=== PATIENT | female | born 1960 | race Caucasian/White ===

== ENCOUNTER 2017-10-07 15:27 | Outpatient (CLI) | payer OTHER ==
[~2017-10-07] VITALS: Ht 157.5 cm; Wt 115.9 kg
[~2017-10-07 15:27] MED LIST: OMEP20CA16 PO
[2017-10-07 15:39] VITALS: Ht 157.5 cm; Wt 115.9 kg
[2017-10-07] MEDS ORDERED: PANT40TA3 PO (15:39)
[2017-10-07] MEDS ORDERED: ONDA-43 PO (15:39)
[2017-10-07 15:40] VITALS: BP 130/68; PULSE 92; RESP 18
--- NOTE | 2017-10-07 16:03 | PN ---
Date/Time of Note Date/Time of Note DATE: 10/07/17 TIME: 15:56 Outpatient Progress Note Chief Complaint UTI/cellulitis//anxiety/endometrial cancer/obesity HPI UTI/no frequency urgency, no fever chill, no blood in the urine, on antibiotic, Cellulitis/patient has cellulitis of the chest wall, patient had redness, and skin peeling, improving, on antibiotic, Anxiety/patient anxious and nervous, patient was given Ativan in the hospital, Endometrial cancer/patient had endometrial cancer, patient had a hysterectomy, no vaginal bleeding, Obesity/patient morbidly obese, no history of hypothyroidism, Review of Systems Const: No Fever, no chills, no Wt. loss, no Fatigue, normal appetite, no diaphoresis. Eyes: No pain, no discharge, no redness, no visual change, no foreign body. ENT: No pain, no bleeding, no congestion, no sore throat, no dysphagia, no discharge or rhinitis. Lymph: No adenopathy, no tender nodes, no lymphedema. Resp: No SOB, no cough, no sputum, no wheezing, no chest pain. CV: No chest pain, no palpitaions, no BLACKMAN, no PND, no edema. GI: Normal appetite, no pain, no nausea, no vomiting, no diarrhea, no blood, no constipation. : No frequency, no urgency, no dysuria, no hematuria, no flank pain, no discharge, no bleeding. Musc: no back pain, no neck pain, no knee pain, no restricted ROM. Skin: No rash, no skin lesions, no erythema, no laceration, no bruising, no pruritus. Neuro: No GIRARD, no dizziness, no syncope, no seizure, no focal-weakness. Endo: No polyuria, no polydypsia, no dry-skin, no temp-intolerance. Psych: No hallucinations, no depression, no anxiety, no suicidal ideation. Ext: No edema, no pain, no ulcer, no weakness. Physical Exam Vital Signs Date Time Temp Pulse Resp B/P Pulse Ox O2 Delivery O2 Flow Rate FiO2 10/07/17 15:40 97.7 92 18 130/68 94 Room Air General Appearance: A 57 year-old male who appears well-developed, well- nourished, in no acute distress. Patient morbidly obese, HEENT: Head normocephalic, atraumatic. Pupils equal, round, reactive to light and accommodate. Sclerae are no jaundice. Nasal turbinates pink without erythema or nasal discharge. Mucous membranes pink and moist without lesions. Oropharynx clear without any exudate or discharge. NECK: Supple. Trachea midline, No thyromegaly, No cervical lymphadenopathy, No mass, No carotid bruits, No JVD, Carotid pulses 2+ bilaterally. PULMONARY: Clear to auscultaion bilaterally, No retractions, Chest expansion symmetric bilaterally, no rales, no ronchi, no dulness on percussion. CARDIAC: Normal SI and S2, Regular rate and rythm, no murmur, gallop, or rub. GASTROINTESTINAL: Abdomen is soft, non-tender, Non Rigid, No distention, Positive bowel sounds x4 quadrants, Liver normal. SKIN: Warm, dry, no rash, no bruise, no echmosis. No redness of the skin on the chest, EXTREMITIES: Bilateral lower extremities no edema, no phlabitus, pulse palpable , no contracture. MUSCULOSKELETAL: Spine Normal, Non-tender, Normal range of motion, No swelling, no deformity, no clubbing, or cyanosis, the patient has no edema to bilateral lower extremities, dorsalis pedis pulses palpable bilaterally. NEUROLOGIC: The patient is awake, alert, oriented, responding to yes/no questions appropriately, moving all extremities, cranial nerve intact, normal strenght, normal power, normal coordination, normal gait. Allergies Coded Allergies: Codeine (Verified Allergy, Intermediate, SOB, 02/23/13) PMH cellulitis/anxiety/UTI/endometrial cancer Social Hx No smoking no drinking, Family Hx Noncontributory Assessment/Plan Impression UTI/cellulitis/anxiety/endometrial cancer/obesity Plan Continue all medication, patient still on antibiotic, patient skin much improved , and patient has no urinary symptoms, Patient education done about her disease, Patient encouraged to increase activity and lose weight, And avoid smoke inhalation, Patient to follow with the primary care physician, Medications Home Meds Reported Medications Pantoprazole* (Protonix*) 40 Mg Tablet., 40 MG PO DAILY, TAB 10/07/17 Ondansetron Hcl* (Zofran*) 4 Mg Tab, 8 MG PO Q6H Y for NAUSEA AND OR VOMITING, TAB 10/07/17 Discontinued Reported Medications Omeprazole* (Omeprazole*) 20 Mg Capsule., 40 MG PO DAILY 02/23/13 BRIAN AYALA MD Oct 07, 2017 16:03
== END 2017-10-07 17:00 | disposition home or self-care (01) ==
LOC: DCC 15:27
PROVIDERS: ATTEND Internal Medicine
DX: N39.0 Urinary tract infection, site not specified (principal); L03.313 Cellulitis of chest wall; F41.9 Anxiety disorder, unspecified; Z85.42 Personal history of malignant neoplasm of other parts of uterus; Z90.710 Acquired absence of both cervix and uterus; E66.01 Morbid (severe) obesity due to excess calories; Z68.42 Body mass index [BMI] 45.0-49.9, adult
CPT/HCPCS: G0463